=== PATIENT | male | born 1960 ===

== ENCOUNTER 2018-10-16 14:55 | Emergency (ER) | payer SELFPAY ==
[2018-10-16 15:00] VITALS: BP 119/91; RESP 20; TEMP 98.6; O2SAT 100
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
[2018-10-16 15:34] VITALS: PULSE 86
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
== END 2018-10-16 17:53 ==
LOC: H.ER 14:55
DX: T14.8XXA Other injury of unspecified body region, initial encounter (principal); Y04.8XXA Assault by other bodily force, initial encounter; I10 Essential (primary) hypertension; Z00.8 Encounter for other general examination